=== PATIENT | female | born 1955 | race Caucasian/White ===

== ENCOUNTER 2022-07-30 20:29 | Inpatient (IN) | payer MEDICARE, OTHER ==
[~2022-07-30] VITALS: Ht 165.1 cm; Wt 119.3 kg
[~2022-07-30 20:29] MED LIST: FLUT1DIS28 INH; Lisinopril PO; METF-440 PO; PRED20TA PO
[2022-07-30] MEDS ORDERED: AZITHROMYCIN IV 500 MG in IV DEXTROSE 5% 250 ML IV ONE (20:45)
[2022-07-30] MEDS ORDERED: IV NORMAL SALINE 500 ML BAG IV ONE (20:45)
[2022-07-30] MEDS ORDERED: CEFTRIAXONE 1 G in IV DEXTROSE 5% 50 ML IV ONE (20:45)
[2022-07-30] MEDS ORDERED: methylPREDNISolone SOD SUCC 125 MG/2 ML VIAL IV ONE (21:00)
[2022-07-30] MEDS ORDERED: ALBUTEROL SULFATE 2.5 MG/3 ML NEBU NEB ONE (21:00)
[2022-07-30] MEDS ORDERED: IPRATROPIUM BROMIDE 0.5 MG/2.5 ML NEBU NEB ONE (21:00)
[2022-07-30] MEDS ORDERED: methylPREDNISolone SOD SUCC 125 MG/2 ML VIAL ONE (21:40)
[2022-07-30] MEDS ORDERED: CEFTRIAXONE /D5W 50ML IVPB **ER PYXIS IV ONE (21:40)
[2022-07-30] MEDS ORDERED: AZITHROMYCIN 500MG/ D5W 250ML IVPB **ER PYXIS ONLY IV ONE (21:41)
[2022-07-30 22:03] LABS: ABG BASE EXCESS 8.4 mmol/L; ABG HCO3 38.1 mmol/L; ABG PCO2 81.7 mmHg (35.0-45.0); ABG PH 7.286 (7.350-7.450); ABG PO2 63.9 mmHg (75.0-100.0); ABG SITE LEFT RADIAL; ABG TOTAL HEMOGLOBIN 12.9 G/dL (12.0-16.0); COHb 2.3 % (0.5-1.5); MetHb 0.3 % (0.0-1.5); O2Hb 89.2 % (94.0-97.0); VENT MODE Nasal Cannula
--- NOTE | 2022-07-30 22:37 | NUR ---
RECEIVED AN ORDER IN RESP. DEPARTMENT ABOUT 21:40 NEVER CALLED ON CELL PHONE, WENT TO ER, PATIENT ALREADY ON BREATHING RX, THEN ALSO FOUND [facility] IN DEPT ON COPY MACHINE, NEVER NOTIFIED , , PT WAS ON NEB RX FOR AWHILE, AND IS COPD, PT BACK ON 3L/M N/C, WAS RETAING PCO2, DR METZGER AWARE, PT VERY ALERT AND TALKING CLEARLY, KEEP SAT 88-92%.Carlotta CASTILLO Addendum: 07/30/22 at 2241 by AGUSTIN CASTILLO RT Amended: Links added.
[2022-07-30] MEDS ORDERED: LEVE750T56 PO (22:42)
[2022-07-30] MEDS ORDERED: DICY20TA11 PO (22:42)
[2022-07-30] MEDS ORDERED: HYDR-894 PO (22:42)
[2022-07-30] MEDS ORDERED: METO50TA16 PO (22:42)
[2022-07-30] MEDS ORDERED: METF-440 PO (22:42)
[2022-07-30] MEDS ORDERED: ATOR20TA PO (22:42)
[2022-07-30] MEDS ORDERED: MINE133E RC (22:42)
[2022-07-30] MEDS ORDERED: LISI20TA30 PO (22:42)
[2022-07-30] MEDS ORDERED: ALBU18HF2 IH (22:42)
[2022-07-30] MEDS ORDERED: CHOL100045 PO (22:42)
[2022-07-30] MEDS ORDERED: DICL100G31 TP (22:42)
[2022-07-30] MEDS ORDERED: GUAI100S9 PO (22:42)
[2022-07-30] MEDS ORDERED: ACET-2154 PO (22:42)
[2022-07-30] MEDS ORDERED: IPRA3AMP22 IH ×2 (22:42)
[2022-07-30] MEDS ORDERED: SENN-18 PO (22:42)
[2022-07-30] MEDS ORDERED: QUET300T2 PO (22:42)
[2022-07-30] MEDS ORDERED: FLUT1DIS28 IH (22:42)
[2022-07-30] MEDS ORDERED: OXYC-133 PO (22:42)
[2022-07-30] MEDS ORDERED: GABA600T12 PO (22:42)
[2022-07-30] MEDS ORDERED: MELA3TAB41 PO (22:42)
[2022-07-31] MEDS ORDERED: MORPHINE SULFATE 4 MG/1 ML DISP.SYRIN ONE (01:10)
[2022-07-31] MEDS ORDERED: MORPHINE SULFATE 4 MG/1 ML DISP.SYRIN IM ONE (01:15)
[2022-07-31 06:28] LABS: HEMATOCRIT 37.9 % (31.2-41.9); MEAN CORPUSCULAR VOLUME 67.7 fL (75.5-95.3); PLATELET COUNT (AUTO) 129 K/uL (179-408)
[2022-07-31 06:51] LABS: ALANINE AMINOTRANSFERASE 17 U/L (14-59); ALKALINE PHOSPHATASE 57 U/L (50-136); ASPARTATE AMINOTRANSFERASE 14 U/L (15-37); BILIRUBIN,DIRECT 0.3 mg/dL (0.0-0.2); BILIRUBIN,TOTAL 0.5 mg/dL (0.2-1.0); CARBON DIOXIDE 38 mmol/L (21-32); CHLORIDE 101 mmol/L (98-107); CREATININE 0.6 mg/dL (0.6-1.3); GLUCOSE 189 mg/dL (74-106); POTASSIUM 4.3 mmol/L (3.5-5.1); TOTAL PROTEIN, SERUM 6.7 g/dL (6.4-8.2); UREA NITROGEN, BLOOD 11 mg/dL (7-18)
[2022-07-31 10:00] LABS: ABG BASE EXCESS 8.1 mmol/L; ABG HCO3 35.4 mmol/L; ABG PCO2 62.7 mmHg (35.0-45.0); ABG SITE LEFT BRACHIAL; ABG TOTAL HEMOGLOBIN 12.8 G/dL (12.0-16.0); COHb 1.6 % (0.5-1.5); MetHb 0.2 % (0.0-1.5); O2Hb 91.3 % (94.0-97.0); VENT MODE Nasal Cannula
[2022-07-31] MEDS ORDERED: OSELTAMIVIR PHOSPHATE 75 MG CAPSULE PO ONE (10:00)
[2022-07-31] MEDS ORDERED: IPRATROPIUM BROMIDE 0.5 MG/2.5 ML NEBU NEB ONE (10:00)
[2022-07-31] MEDS ORDERED: ALBUTEROL SULFATE 2.5 MG/3 ML NEBU NEB ONE (10:00)
[2022-07-31] MEDS ORDERED: ALBUTEROL SULFATE 2.5 MG/3 ML NEBU ONE (10:18)
[2022-07-31] MEDS ORDERED: IPRATROPIUM BROMIDE 0.5 MG/2.5 ML NEBU ONE (10:18)
[2022-07-31] MEDS ORDERED: OSELTAMIVIR PHOSPHATE 75 MG CAPSULE ONE (11:23)
--- NOTE | 2022-07-31 13:50 | NUR ---
patient received at this time from the ER;alert and awake;respirations even and unlabored. patient belligerent;aggressive;uncooperative with care and verbally abusive.no complaint of any discomfort at this time.
[2022-07-31] MEDS ORDERED: ACETAMINOPHEN 325 MG TABLET-SA PATIENTS-PAIN ONLY PO PRN (14:45)
[2022-07-31] MEDS ORDERED: MINERAL OIL FLEET ENEMA 133 ML BOTTLE RC PRN (14:45)
[2022-07-31] MEDS ORDERED: SENNOSIDES 1 TABLET PO PRN (14:45)
[2022-07-31] MEDS ORDERED: hydrALAZINE HCL 25 MG TABLET PO PRN (14:45)
[2022-07-31] MEDS ORDERED: ACETAMINOPHEN 325 MG TABLET PO PRN (15:00)
--- NOTE | 2022-07-31 15:38 | NUR ---
patient took of gambling monitor and i attempted to reapply several times but she refused.
[2022-07-31 15:42] VITALS: BP 117/54
[2022-07-31 16:00] VITALS: BP 117/54
[2022-07-31] MEDS: PIPERACILLIN SODIUM/TAZOBACTAM 3.375 G in IV DEXTROSE 5% 50 ML IV SCH ×2 (16:34→22:10)
[2022-07-31] MEDS: METOPROLOL TARTRATE 50 MG TABLET PO SCH (16:35)
[2022-07-31] MEDS: levETIRAcetam 250 MG TABLET PO SCH (16:35)
[2022-07-31] MEDS: FLUTICASONE/VILANTEROL 1 EACH BLST.W.DEV IH SCH (16:35)
[2022-07-31] MEDS: GABAPENTIN 300 MG CAPSULE PO SCH (16:36)
[2022-07-31] MEDS: DICYCLOMINE HCL 20 MG TABLET PO SCH (16:36)
[2022-07-31] MEDS ORDERED: VANCOMYCIN IV 2,000 MG in IV DEXTROSE 5% 500 ML IV ONE (17:00)
[2022-07-31] MEDS: METFORMIN HCL 500 MG TABLET PO SCH (17:25)
[2022-07-31] MEDS: LEVALBUTEROL HCL NEB 0.63 MG/3 ML NEBU NEB PRN (19:33)
[2022-07-31 20:00] VITALS: BP 148/78
[2022-07-31] MEDS: MELATONIN 3 MG TABLET PO SCH (21:49)
[2022-07-31] MEDS: ATORVASTATIN 20 MG TABLET PO SCH (21:50)
[2022-07-31] MEDS: QUETIAPINE FUMARATE 100 MG TABLET PO SCH (21:50)
[2022-07-31] MEDS: ENOXAPARIN SODIUM 40 MG/0.4 ML DISP.SYRIN SQ SCH (21:51)
[2022-07-31] MEDS: MORPHINE SULFATE 2 MG/1 ML DISP.SYRIN IV PRN (22:17)
[2022-08-01] VITALS: BP 120/56
[2022-08-01] MEDS: PIPERACILLIN SODIUM/TAZOBACTAM 3.375 G in IV DEXTROSE 5% 50 ML IV SCH ×4 (03:44→21:05)
[2022-08-01 04:00] VITALS: BP 132/63
[2022-08-01] MEDS: MORPHINE SULFATE 2 MG/1 ML DISP.SYRIN IV PRN ×3 (05:29→18:38)
[2022-08-01] MEDS: VANCOMYCIN IV 1,750 MG in IV DEXTROSE 5% 500 ML IV SCH ×2 (05:32→17:52)
[2022-08-01 06:40] LABS: HEMATOCRIT 33.8 % (31.2-41.9); MEAN CORPUSCULAR HEMOGLOBIN 21.2 uug (24.7-32.8); MEAN CORPUSCULAR VOLUME 67.3 fL (75.5-95.3); PLATELET COUNT (AUTO) 136 K/uL (179-408)
[2022-08-01] MEDS: PANTOPRAZOLE SODIUM 40 MG TABLET.DR PO SCH (06:44)
[2022-08-01] MEDS ORDERED: IPRATROPIUM BROMIDE 0.5 MG/2.5 ML NEBU NEB PRN (06:45)
[2022-08-01] MEDS ORDERED: ALBUTEROL SULFATE 2.5 MG/ 0.5 ML NEBU NEB PRN (06:45)
[2022-08-01 07:03] LABS: BILIRUBIN,TOTAL 0.6 mg/dL (0.2-1.0); CREATININE 0.6 mg/dL (0.6-1.3); MAGNESIUM 1.7 mg/dL (1.8-2.4); PHOSPHOROUS 3.6 mg/dL (2.5-4.9); POTASSIUM 3.6 mmol/L (3.5-5.1)
[2022-08-01 07:18] LABS: THYROID STIMULATING HORMONE 0.183 mIU/mL (0.358-3.740)
--- NOTE | 2022-08-01 07:19 | NUR ---
Stable improving Slept for long periods
[2022-08-01] MEDS: LEVALBUTEROL HCL NEB 0.63 MG/3 ML NEBU NEB PRN ×2 (08:33→23:58)
[2022-08-01] MEDS: DICYCLOMINE HCL 20 MG TABLET PO SCH ×3 (09:13→17:53)
[2022-08-01] MEDS: CHOLECALCIFEROL 1,000 UNIT TABLET PO SCH (09:13)
[2022-08-01] MEDS: GABAPENTIN 300 MG CAPSULE PO SCH ×3 (09:14→17:52)
[2022-08-01] MEDS: METFORMIN HCL 500 MG TABLET PO SCH ×2 (09:14→17:53)
[2022-08-01] MEDS: levETIRAcetam 250 MG TABLET PO SCH ×2 (09:14→17:52)
[2022-08-01] MEDS: METOPROLOL TARTRATE 50 MG TABLET PO SCH ×2 (09:19→17:00)
[2022-08-01 10:12] VITALS: BP 119/70
[2022-08-01] MEDS: MAGNESIUM SULFATE/D5W 100 ML IV SCH ×2 (11:13→13:56)
[2022-08-01] MEDS: GUAIFENESIN LA 600 MG TABLET.SA PO SCH ×2 (11:13→20:56)
[2022-08-01] MEDS: FLUTICASONE/VILANTEROL 1 EACH BLST.W.DEV IH SCH (11:14)
[2022-08-01] MEDS: LEVALBUTEROL HCL NEB 0.63 MG/3 ML NEBU NEB SCH ×3 (13:12→20:21)
[2022-08-01] MEDS: IPRATROPIUM BROMIDE 0.5 MG/2.5 ML NEBU NEB SCH ×3 (13:12→20:20)
[2022-08-01] MEDS: methylPREDNISolone SOD SUCC 40 MG/ML VIAL IV SCH ×2 (13:55→21:03)
[2022-08-01 15:50] VITALS: BP 121/49
[2022-08-01 20:00] VITALS: BP 145/74
[2022-08-01] MEDS: MELATONIN 3 MG TABLET PO SCH (20:56)
[2022-08-01] MEDS: ATORVASTATIN 20 MG TABLET PO SCH (20:56)
[2022-08-01] MEDS: QUETIAPINE FUMARATE 100 MG TABLET PO SCH (21:01)
[2022-08-01] MEDS: ENOXAPARIN SODIUM 40 MG/0.4 ML DISP.SYRIN SQ SCH (21:03)
[2022-08-02] VITALS: BP 122/65
[2022-08-02 04:00] VITALS: BP 142/60
[2022-08-02] MEDS: PIPERACILLIN SODIUM/TAZOBACTAM 3.375 G in IV DEXTROSE 5% 50 ML IV SCH (04:35)
[2022-08-02 05:03] LABS: HEMATOCRIT 33.8 % (31.2-41.9); MEAN CORPUSCULAR HEMOGLOBIN 21.3 uug (24.7-32.8); MEAN CORPUSCULAR VOLUME 66.4 fL (75.5-95.3); PLATELET COUNT (AUTO) 119 K/uL (179-408)
[2022-08-02 05:06] LABS: CREATININE 0.8 mg/dL (0.6-1.3); MAGNESIUM 1.9 mg/dL (1.8-2.4); PHOSPHOROUS 4.3 mg/dL (2.5-4.9); POTASSIUM 3.7 mmol/L (3.5-5.1)
[2022-08-02] MEDS: PANTOPRAZOLE SODIUM 40 MG TABLET.DR PO SCH (06:10)
[2022-08-02] MEDS: methylPREDNISolone SOD SUCC 40 MG/ML VIAL IV SCH (06:10)
[2022-08-02] MEDS: VANCOMYCIN IV 1,750 MG in IV DEXTROSE 5% 500 ML IV SCH (06:10)
[2022-08-02] MEDS ORDERED: ALBUTEROL SULFATE 1.25 MG/3 ML NEBU NEB PRN (07:30)
[2022-08-02] MEDS: ALBUTEROL SULFATE 1.25 MG/3 ML NEBU NEB SCH ×3 (07:41→15:00)
[2022-08-02] MEDS: IPRATROPIUM BROMIDE 0.5 MG/2.5 ML NEBU NEB SCH ×3 (07:41→15:00)
[2022-08-02] MEDS: MORPHINE SULFATE 2 MG/1 ML DISP.SYRIN IV PRN ×4 (07:50→22:21)
[2022-08-02] MEDS: levETIRAcetam 250 MG TABLET PO SCH ×2 (08:42→17:10)
[2022-08-02] MEDS: GABAPENTIN 300 MG CAPSULE PO SCH ×3 (08:42→17:10)
[2022-08-02] MEDS: METFORMIN HCL 500 MG TABLET PO SCH ×2 (08:42→17:11)
[2022-08-02] MEDS: DICYCLOMINE HCL 20 MG TABLET PO SCH ×3 (08:42→17:10)
[2022-08-02] MEDS: FLUTICASONE/VILANTEROL 1 EACH BLST.W.DEV IH SCH (08:42)
[2022-08-02] MEDS: GUAIFENESIN LA 600 MG TABLET.SA PO SCH ×2 (08:42→20:24)
[2022-08-02] MEDS: CHOLECALCIFEROL 1,000 UNIT TABLET PO SCH (08:42)
[2022-08-02] MEDS: METOPROLOL TARTRATE 50 MG TABLET PO SCH ×2 (08:45→17:15)
--- NOTE | 2022-08-02 11:13 | NUR ---
Patient refused to take vitals 2 times. She said she wants to sleep and be "unbothered"
[2022-08-02] MEDS ORDERED: CEFTRIAXONE 1 G in IV DEXTROSE 5% 50 ML IV SCH (11:15)
[2022-08-02] MEDS: CEFTRIAXONE 2 G in IV DEXTROSE 5% 100 ML IV SCH (11:36)
[2022-08-02] MEDS ORDERED: PIPERACILLIN SODIUM/TAZOBACTAM 3.375 G in IV DEXTROSE 5% 100 ML IV SCH (12:00)
[2022-08-02] MEDS: GLUCERNA SHAKE 237 ML CAN PO SCH (14:17)
[2022-08-02] MEDS: PROTEIN SUPPLEMENT (PROSTAT) 30 ML LIQUID PO SCH ×2 (14:31→17:17)
[2022-08-02 15:06] VITALS: BP 125/69
[2022-08-02 16:00] VITALS: BP 133/59
[2022-08-02 20:00] VITALS: BP 142/67
--- NOTE | 2022-08-02 20:15 | NUR ---
Patient request for ambien, notify Valery Yañez with order of ambien 2.5 po once.
[2022-08-02] MEDS: ATORVASTATIN 20 MG TABLET PO SCH (20:25)
[2022-08-02] MEDS: QUETIAPINE FUMARATE 100 MG TABLET PO SCH (20:25)
[2022-08-02] MEDS: MELATONIN 3 MG TABLET PO SCH (20:27)
[2022-08-02] MEDS: ENOXAPARIN SODIUM 40 MG/0.4 ML DISP.SYRIN SQ SCH (20:29)
[2022-08-02] MEDS ORDERED: ZOLPIDEM 5 MG TABLET PO ONE (21:00)
[2022-08-02] MEDS ORDERED: ZOLPIDEM 5 MG TABLET PO SCH (22:30)
[2022-08-03] VITALS: BP 139/72
[2022-08-03] MEDS: ALBUTEROL SULFATE 1.25 MG/3 ML NEBU NEB SCH ×4 (00:41→15:30)
[2022-08-03] MEDS: IPRATROPIUM BROMIDE 0.5 MG/2.5 ML NEBU NEB SCH ×4 (00:41→15:30)
[2022-08-03 04:00] VITALS: BP 130/65
[2022-08-03] MEDS: PANTOPRAZOLE SODIUM 40 MG TABLET.DR PO SCH ×2 (06:03→08:59)
[2022-08-03] MEDS: MORPHINE SULFATE 2 MG/1 ML DISP.SYRIN IV PRN ×2 (06:17→11:09)
--- NOTE | 2022-08-03 06:37 | NUR ---
Patient awake no sob no chest pain, cont on pain management due to back pain, right femoral perma cath patent, flushed line with NS, still with moist cough, cont on breathing treatment, cont to monitor.
[2022-08-03 08:00] VITALS: BP 140/60
[2022-08-03] MEDS ORDERED: predniSONE 20 MG TABLET PO SCH (08:00)
[2022-08-03] MEDS: levETIRAcetam 250 MG TABLET PO SCH (08:59)
[2022-08-03] MEDS: METFORMIN HCL 500 MG TABLET PO SCH (08:59)
[2022-08-03] MEDS: GUAIFENESIN LA 600 MG TABLET.SA PO SCH (08:59)
[2022-08-03] MEDS: GABAPENTIN 300 MG CAPSULE PO SCH ×2 (08:59→12:42)
[2022-08-03] MEDS: DICYCLOMINE HCL 20 MG TABLET PO SCH ×2 (08:59→12:42)
[2022-08-03] MEDS: GLUCERNA SHAKE 237 ML CAN PO SCH (09:01)
[2022-08-03] MEDS: PROTEIN SUPPLEMENT (PROSTAT) 30 ML LIQUID PO SCH (09:02)
[2022-08-03] MEDS: METOPROLOL TARTRATE 50 MG TABLET PO SCH (09:08)
[2022-08-03] MEDS: FLUTICASONE/VILANTEROL 1 EACH BLST.W.DEV IH SCH (09:10)
[2022-08-03] MEDS: CHOLECALCIFEROL 1,000 UNIT TABLET PO SCH (09:10)
[2022-08-03] MEDS: CEFTRIAXONE 2 G in IV DEXTROSE 5% 100 ML IV SCH (11:08)
[2022-08-03 11:49] VITALS: BP 152/83
[2022-08-03] MEDS ORDERED: METH4TAB3 PO (11:55)
[2022-08-03] MEDS ORDERED: AZIT250T13 PO (11:55)
--- NOTE | 2022-08-03 16:50 | NUR ---
Patient discharged. Discharge packet given and explained to patient. Central line removed without complication. Patient tolerated well. Report given to NIRU Gauthier at [facility]. Patient transported to said facility via ambulance.
[2022-08-03 18:45] VITALS: BP 124/85
== END 2022-08-03 15:45 | DRG 189 ==
LOC: ER 20:31 → TELE3 07-31 13:11
PROVIDERS: ADMIT Internal Medicine; ATTEND Nurse Practitioner Acute Care
DX: J96.01 Acute respiratory failure with hypoxia (principal); I50.31 Acute diastolic (congestive) heart failure; J15.9 Unspecified bacterial pneumonia; J44.0 Chronic obstructive pulmonary disease with (acute) lower respiratory infection; J44.1 Chronic obstructive pulmonary disease with (acute) exacerbation; D68.59 Other primary thrombophilia; Z68.41 Body mass index [BMI] 40.0-44.9, adult; J96.02 Acute respiratory failure with hypercapnia; D50.9 Iron deficiency anemia, unspecified; D69.6 Thrombocytopenia, unspecified; E66.01 Morbid (severe) obesity due to excess calories; E78.5 Hyperlipidemia, unspecified; F17.210 Nicotine dependence, cigarettes, uncomplicated; G40.909 Epilepsy, unspecified, not intractable, without status epilepticus; G47.33 Obstructive sleep apnea (adult) (pediatric); I11.0 Hypertensive heart disease with heart failure; I25.10 Atherosclerotic heart disease of native coronary artery without angina pectoris; Z20.822 Contact with and (suspected) exposure to COVID-19; I27.20 Pulmonary hypertension, unspecified; Z79.84 Long term (current) use of oral hypoglycemic drugs; Z74.09 Other reduced mobility; E11.9 Type 2 diabetes mellitus without complications; J20.9 Acute bronchitis, unspecified; Z90.710 Acquired absence of both cervix and uterus; Z85.42 Personal history of malignant neoplasm of other parts of uterus; F29 Unspecified psychosis not due to a substance or known physiological condition
CPT/HCPCS: 36415; 36600; 71045; 83550; 83605; 83735; 84100; 84443; 84484; 85025; 85730; 87040; 87400; 93005; 93307; 94640; G0378; J0456; J0696; J1650; J2270; J2543; J2920; J2930; J3370; J3590; J7040; J7060; J7512; J7614